=== PATIENT | male | born 2000 | race Two or more races ===

== ENCOUNTER 2022-11-22 20:55 | Emergency (ER) | payer BC, OTHER ==
[~2022-11-22] VITALS: Ht 167.6 cm; Wt 61.2 kg
[2022-11-22 21:12] VITALS: BP 130/76; TEMP 98; O2SAT 97
[2022-11-22] MEDS ORDERED: TDAP [DIPH/PERTUSSIS/TET] 0.5 ML VIAL IM ONE ×2 (21:30→21:37)
[2022-11-22] MEDS ORDERED: LIDOCAINE HCL/PF 1% 30 ML VIAL TP ONE (21:30)
[2022-11-22] MEDS ORDERED: LIDOCAINE HCL/MPF 1% 30 ML VIAL IJ ONE (21:31)
[2022-11-22] MEDS ORDERED: SULF1TAB48 PO (22:44)
[2022-11-22] MEDS ORDERED: IBUP-1955 PO (22:44)
== END 2022-11-22 23:05 | disposition home or self-care (01) ==
LOC: ER 20:58
DX: S51.812A Laceration without foreign body of left forearm, initial encounter (principal); F32.A Depression, unspecified; F20.9 Schizophrenia, unspecified; F17.200 Nicotine dependence, unspecified, uncomplicated; Z59.00 Homelessness unspecified; W26.0XXA Contact with knife, initial encounter; Y93.89 Activity, other specified; Y92.89 Other specified places as the place of occurrence of the external cause; Y99.8 Other external cause status
CPT/HCPCS: 12002; 90471; 90715; 99283; A6403; J3490